=== PATIENT | male | born 1960 | race Caucasian/White ===

== ENCOUNTER 2020-11-01 12:46 | Emergency (ER) | payer OTHER ==
[~2020-11-01] VITALS: Ht 190.5 cm; Wt 108.9 kg
[2020-11-01] MEDS ORDERED: NS IV 1000 ML 1,000 ML IV SCH (14:00)
[2020-11-01] MEDS ORDERED: ONDANSETRON 4 MG/2 ML (SDV) Z0FRAN IVP ONE (14:00)
--- NOTE | 2020-11-01 14:41 | Diagnostic Imaging Report ---
INDICATION: Kidney pain and vomiting. TECHNIQUE: Abdominal film obtained at 02:35 p.m. FINDINGS: The abdominal bowel gas pattern is unremarkable. There is prominent stool in the colon. The intrarenal calculi noted on recent CT study are poorly visualized on this study. There are multiple calcifications overlying the left side of the pelvis, some of which are phleboliths although one may be the patient's known UVJ stone. There are surgical sutures in the right side of the pelvis. IMPRESSION: Unremarkable bowel gas pattern. There are pelvic calcifications present, which are mostly phleboliths, although one may be the patient's known left UVJ stone. The intrarenal calculi visualized on the CT study are not well depicted on this study. Dictated by: Dictated on workstation # [id number]
--- NOTE | 2020-11-01 14:45 | Diagnostic Imaging Report ---
PROCEDURE: CT urinary tract, rule out kidney stone. TECHNIQUE: Multiple contiguous axial images were obtained through the abdomen and pelvis without the use of intravenous contrast. Auto Exposure Controls were utilized during the CT exam to meet ALARA standards for radiation dose reduction. INDICATION: Left flank pain. FINDINGS: A 2.5 mm calculus at the distal left ureter near the UVJ results in mild to moderate upstream left-sided hydroureteronephrosis with significant left perinephric and periureteric stranding. No drainable fluid collection. There are additional nonobstructing bilateral intrarenal calculi, the largest additional stone within a right lower pole calyx measuring 5.1 mm. No right-sided ureteral calculus. The liver, gallbladder, bile ducts, spleen, adrenals, and pancreas unremarkable. The aorta is nonaneurysmal. There is a normal appendix. There is no bowel obstruction. The prostate and seminal vesicles unremarkable. There is right lower quadrant abdominal wall surgery. IMPRESSION: Bilateral nephrolithiasis with an obstructing 2.5 mm distal left ureteral stone near the ureterovesical junction resulting in mild to moderate upstream hydroureteronephrosis. Dictated by: Dictated on workstation # [id number]
[2020-11-01] MEDS ORDERED: KETOROLAC 30 MG/ML VIAL IVP STA (14:52)
[2020-11-01 14:55] LABS: BASOPHILS % (AUTO) 0 % (0-10); EOSINOPHILS % (AUTO) 0 % (0-10); HEMATOCRIT 50 % (40-54); LYMPHOCYTES # (AUTO) 1.5 10^3/uL (1.0-4.0); LYMPHOCYTES % (AUTO) 10 % (12-44); MEAN CORPUSCULAR HEMOGLOBIN 31 pg (25-34); MEAN CORPUSCULAR HGB CONC 34 g/dL (32-36); MEAN CORPUSCULAR VOLUME 90 fL (80-99); MEAN PLATELET VOLUME 9.6 fL (9.0-12.2); MONOCYTES # (AUTO) 1.3 10^3/uL (0.0-1.0); MONOCYTES % (AUTO) 8 % (0-12); NEUTROPHILS # (AUTO) 12.6 10^3/uL (1.8-7.8); NEUTROPHILS % (AUTO) 81 % (42-75); PLATELET COUNT 221 10^3/uL (130-400); WHITE BLOOD COUNT 15.5 10^3/uL (4.3-11.0)
[2020-11-01] MEDS ORDERED: HYDROcodone/APAP 5 MG/325 MG (LORTAB) TAB PO ONE (15:00)
[2020-11-01 15:02] LABS: BILIRUBIN,URINE NEGATIVE (NEGATIVE); CLARITY,URINE CLEAR; COLOR,URINE YELLOW; GLUCOSE, URINE (UA) NEGATIVE (NEGATIVE); KETONES,URINE 1+ (NEGATIVE); LEUKOCYTE ESTERASE ,URINE NEGATIVE (NEGATIVE); NITRITE,URINE NEGATIVE (NEGATIVE); PROTEIN,URINE NEGATIVE (NEGATIVE)
[2020-11-01 15:04] LABS: ALBUMIN 4.6 GM/DL (3.2-4.5); CHLORIDE 98 MMOL/L (98-107); SODIUM 138 MMOL/L (135-145)
[2020-11-01 15:05] LABS: CALCIUM 10.1 MG/DL (8.5-10.1)
[2020-11-01 15:06] LABS: GLUCOSE 149 MG/DL (70-105)
[2020-11-01 15:07] LABS: TOTAL PROTEIN 8.4 GM/DL (6.4-8.2)
[2020-11-01 15:08] LABS: CARBON DIOXIDE 25 MMOL/L (21-32)
[2020-11-01 15:10] LABS: ALKALINE PHOSPHATASE 52 U/L (40-136); CREATININE SERUM 1.83 MG/DL (0.60-1.30); GFR ESTIMATED 38
[2020-11-01 15:11] LABS: BUN/CREATININE RATIO 11
[2020-11-01 15:13] LABS: ALANINE AMINOTRANSFERASE 38 U/L (0-55)
--- NOTE | 2020-11-01 15:15 | ED GU-Female ---
General Chief Complaint: - Urinary Stated Complaint: KIDNEY PAIN, VOMITING Nursing Triage Note: PT ARRIVED BY PRIVATE VEHICLE WITH CHIEF COMPLAINT OF POSSIBLE KIDNEY STONE. PT STATED ONSET WAS SUNDAY. HE TOOK HYDROCODONE THAT HE HAD PREVIOUSLY GOT SEVERAL YEARS AGO BUT DID NOT WORK. HE DECIDED TO TAKE IBUPROFEN YESTERDAY AT NOON AND IT HELPED A LITTLE. HE HAS A HISTORY OF KIDNEY STONES. HE STARTED TO GET HICCUPS WHICH HAS CAUSED HIM DIFFICULTY SWALLOWING. CAN BARELY EAT EGGS. PT TAKES CRESTOR. PT HAS HISTORY OF 2 HERNIA REPAIRS AND C6 BONE REPLACEMENT. PT DENIES SMOKING, ALCOHOL OR DRUG USE. UA WAS OBTAINED AND VITALS WERE DONE. PT IS ALLERGIC TO ADHESIVE (BANDAIDS). Source: patient Exam Limitations: no limitations History of Present Illness Date Seen by Provider: Nov 01, 2020 Time Seen by Provider: 14:55 Initial Comments Here with report of left-sided abdominal pain and flank pain and believes that he may have a kidney stone. Reports hiccups and nausea. He did take ibuprofen 4 hours ago 4 mg tablet and states that is actually helping a bit. Denies v omiting but does have nausea. Denies diarrhea. Denies blood in his urine or stool. No fever chills or other illness. Follows with [facility]. Timing/Duration: getting worse, other (2 to 3 days) Severity/Quality: moderate, aching, cramping Location: left flank Radiation: suprapubic Prior Genitourinary Problems: similar symptoms (Kidney stones) Associated Symptoms: abdominal pain; No dysuria, No fever/chills; lower back pain; No nausea/vomiting, No urinary frequency Allergies and Home Medications Allergies Coded Allergies: adhesive tape (Verified Allergy, Unknown, 11/01/20) Patient Home Medication List Home Medication List Reviewed: Yes Review of Systems Review of Systems Constitutional: see HPI; No chills, No fever EENTM: no symptoms reported Respiratory: no symptoms reported Cardiovascular: no symptoms reported Gastrointestinal: see HPI Genitourinary: see HPI Musculoskeletal: see HPI Skin: no symptoms reported Past Vetpnoe-Nlxkhc-Cyiila Hx Patient Social History Tobacco Use?: No Smoking Status: Never a Smoker Substance use?: No Alcohol Use?: No Pt feels they are or have been: No Past Medical History Surgeries: Yes Orthopedic Respiratory: No Cardiac: Yes High Cholesterol Genitourinary: Yes Kidney Stones Physical Exam Vital Signs Vital Signs - First Documented 11/01/20 13:25 Temp 36.9 Pulse 129 Resp 18 B/P (MAP) 125/91 (102) Pulse Ox 96 O2 Delivery Room Air Capillary Refill : Less Than 3 Seconds Height, Weight, BMI Height: '" Weight: lbs. oz. kg; 30.00 BMI Method: General Appearance: WD/WN, no apparent distress Cardiovascular: regular rate, rhythm, no murmur Respiratory: lungs clear, normal breath sounds Gastrointestinal: non tender, soft Extremities: non-tender, normal inspection Neurologic/Psychiatric: alert, oriented x 3 Skin: normal color, warm/dry Progress/Results/Core Measures Suspected Sepsis SIRS Temperature: Pulse: 129 Respiratory Rate: 18 Laboratory Tests 11/01/20 14:46: White Blood Count 15.5H Blood Pressure 125 /91 Mean: 102 Laboratory Tests 11/01/20 14:46: Platelet Count 221, Total Bilirubin 1.0 Results/Orders Lab Results Laboratory Tests Test 11/01/20 13:12 11/01/20 14:46 Range/Units White Blood Count 15.5 H 4.3-11.0 10^3/uL Red Blood Count 5.52 4.30-5.52 10^6/uL Hemoglobin 17.0 13.3-17.7 g/dL Hematocrit 50 40-54 % Mean Corpuscular Volume 90 80-99 fL Mean Corpuscular Hemoglobin 31 25-34 pg Mean Corpuscular Hemoglobin Concent 34 32-36 g/dL Red Cell Distribution Width 12.8 10.0-14.5 % Platelet Count 221 130-400 10^3/uL Mean Platelet Volume 9.6 9.0-12.2 fL Immature Granulocyte % (Auto) 1 % Neutrophils (%) (Auto) 81 H 42-75 % Lymphocytes (%) (Auto) 10 L 12-44 % Monocytes (%) (Auto) 8 0-12 % Eosinophils (%) (Auto) 0 0-10 % Basophils (%) (Auto) 0 0-10 % Neutrophils # (Auto) 12.6 H 1.8-7.8 10^3/uL Lymphocytes # (Auto) 1.5 1.0-4.0 10^3/uL Monocytes # (Auto) 1.3 H 0.0-1.0 10^3/uL Eosinophils # (Auto) 0.0 0.0-0.3 10^3/uL Basophils # (Auto) 0.0 0.0-0.1 10^3/uL Immature Granulocyte # (Auto) 0.1 0.0-0.1 10^3/uL Sodium Level 138 135-145 MMOL/L Potassium Level 4.0 3.6-5.0 MMOL/L Chloride Level 98 98-107 MMOL/L Carbon Dioxide Level 25 21-32 MMOL/L Anion Gap 15 H 5-14 MMOL/L Glucose Level 149 H 70-105 MG/DL Calcium Level 10.1 8.5-10.1 MG/DL Corrected Calcium 8.5-10.1 MG/DL Total Bilirubin 1.0 0.1-1.0 MG/DL Total Protein 8.4 H 6.4-8.2 GM/DL Albumin 4.6 H 3.2-4.5 GM/DL My Orders Orders - ISHAAN ADAME MD Ketorolac Injection (Toradol Injection) (11/01/20 14:52) Ua Culture If Indicated (11/01/20 14:52) Hydrocodone/Apap 5/325 Tablet (Lortab 5 (11/01/20 15:00) Medications Given in ED Current Medications Medications Dose Ordered Sig/Madhavi Route Start Time Stop Time Status Last Admin Dose Admin Ondansetron HCl 8 mg ONCE ONCE IVP 11/01/20 14:00 11/01/20 14:01 DC 11/01/20 14:32 8 MG Vital Signs/I&O 11/01/20 13:25 Temp 36.9 Pulse 129 Resp 18 B/P (MAP) 125/91 (102) Pulse Ox 96 O2 Delivery Room Air Capillary Refill : Less Than 3 Seconds Blood Pressure Mean: 102 Progress Note : Progress Note Seen and evaluated. IV, labs, UA, CT abdomen pelvis and abdominal x-ray ordered. Monitor patient. CT does show stones. Normal saline 1 L bolus ordered. Toradol 30 mg IV and hydrocodone 5/325 1 tab p.o. Discharged home with return precautions. Patient verbalized understanding of instructions and agreement with plan. Diagnostic Imaging Diagonstic Imaging: CT Plain Films/CT/US/NM/MRI: abdomen, pelvis Comments [facility] [place], [place] NAME: ROSA GLASGOW [facility] REC#: [id number] PT STATUS: REG ER : 1960 PHYSICIAN: LILLIAN CASTANO APRN ADMIT DATE: 11/01/20/ER Draft Date of Exam:11/01/20 CT ABD/PELVIS WO(KIDNEY STONE) PROCEDURE: CT urinary tract, rule out kidney stone. TECHNIQUE: Multiple contiguous axial images were obtained through the abdomen and pelvis without the use of intravenous contrast. Auto Exposure Controls were utilized during the CT exam to meet ALARA standards for radiation dose reduction. INDICATION: Left flank pain. FINDINGS: A 2.5 mm calculus at the distal left ureter near the UVJ results in mild to moderate upstream left-sided hydroureteronephrosis with significant left perinephric and periureteric stranding. No drainable fluid collection. There are additional nonobstructing bilateral intrarenal calculi, the largest additional stone within a right lower pole calyx measuring 5.1 mm. No right-sided ureteral calculus. The liver, gallbladder, bile ducts, spleen, adrenals, and pancreas unremarkable. The aorta is nonaneurysmal. There is a normal appendix. There is no bowel obstruction. The prostate and seminal vesicles unremarkable. There is right lower quadrant abdominal wall surgery. IMPRESSION: Bilateral nephrolithiasis with an obstructing 2.5 mm distal left ureteral stone near the ureterovesical junction resulting in mild to moderate upstream hydroureteronephrosis. Dictated on workstation # [id number] Dict: 11/01/20 1434 Trans: 11/01/20 1445 [facility] [id number] Interpreted by: LISA INGRAM Electronically signed by: [place] [facility]: Xray Plain Films/CT/US/NM/MRI: abdomen Comments [facility], [place] NAME: ROSA GLASGOW [facility] REC#: [id number] PT STATUS: REG ER : 1960 PHYSICIAN: LILLIAN CASTANO APRN ADMIT DATE: 11/01/20/ER Draft Date of Exam:11/01/20 ABDOMEN/KUB 1VIEW INDICATION: Kidney pain and vomiting. TECHNIQUE: Abdominal film obtained at 02:35 p.m. FINDINGS: The abdominal bowel gas pattern is unremarkable. There is prominent stool in the colon. The intrarenal calculi noted on recent CT study are poorly visualized on this study. There are multiple calcifications overlying the left side of the pelvis, some of which are phleboliths although one may be the patient's known UVJ stone. There are surgical sutures in the right side of the pelvis. IMPRESSION: Unremarkable bowel gas pattern. There are pelvic calcifications present, which are mostly phleboliths, although one may be the patient's known left UVJ stone. The intrarenal calculi visualized on the CT study are not well depicted on this study. Dictated on workstation # [id number] Dict: 11/01/20 1435 Trans: 11/01/20 1440 [id number] Interpreted by: JUAN ROLAND MD Electronically signed by: Departure Impression Primary Impression: Left ureteral stone Disposition: 01 HOME, SELF-CARE Condition: Stable Departure-Patient Inst. Decision time for Depature: 15:18 Referrals: JULIAN ARMENTA MD Patient Instructions: Kidney Stones (DC), How to Strain Your Urine Add. Discharge Instructions: All discharge instructions reviewed with patient and/or family. Voiced u nderstanding. You may take ibuprofen 600 mg every 8 hours as needed for pain. Take other medications as prescribed. Follow-up with your doctor for recheck and further evaluation. You should follow-up with urologist listed or of your choosing for recheck and further evaluation as well. Call his office for appointment. Return for worse pain, fever, vomiting, weakness, breathing problems or other concerns as needed. Drink plenty of fluids. Scripts Tamsulosin HCl (Flomax) 0.4 Mg Cap 0.4 MG PO DAILY, #14 CAP Prov: ISHAAN ADAME MD 11/01/20 Hydrocodone Bit/Acetaminophen (HYDROcodone/APAP 5 MG/325 MG TAB) 1 Tab Tab 1 TAB PO Q4H for Pain, #12 TAB 0 Refills Prov: ISHAAN ADAME MD 11/01/20 Cephalexin (Cephalexin) 500 Mg Tablet 500 MG PO BID, #14 TAB 0 Refills Prov: ISHAAN ADAME MD 11/01/20 ISHAAN ADAME MD Nov 01, 2020 15:15
[2020-11-01 15:17] LABS: BACTERIA,URINE NEGATIVE /HPF
[2020-11-01] MEDS ORDERED: TMSL.4C PO (15:17)
[2020-11-01] MEDS ORDERED: CEPH500T PO (15:17)
[2020-11-01] MEDS ORDERED: ACHD5005 PO (15:17)
[2020-11-01 15:22] LABS: LYMPHOCYTES % (MANUAL) 14 %; MONOCYTES % (MANUAL) 8 %; NEUTROPHILS % (MANUAL) 78 %; RBC MORPH NORMAL
[2020-11-01 16:08] VITALS: BP 140/94
== END 2020-11-01 16:08 | disposition home or self-care (01) ==
LOC: EDUNIT# 12:46 → ER 12:50
DX: N13.2 Hydronephrosis with renal and ureteral calculous obstruction (principal)
CPT/HCPCS: 36415; 74018; 74176; 80053; 81000; 85007; 85027; 96361; 96374; 96375

== ENCOUNTER → 2020-11-10 | Outpatient (CLI) | payer OTHER ==
[~2020-11-10] MED LIST: ACHD5005 PO; CEPH500T PO; TMSL.4C PO
--- NOTE | 2020-11-10 15:18 | Diagnostic Imaging Report ---
INDICATION: Nephrolithiasis. EXAMINATION: KUB at 3:08 PM. There is a 4 mm calcification projecting over the lower pole of the right kidney. There is a 1 mm calcification projecting over the upper pole of the left kidney. Bowel gas pattern is normal. IMPRESSION: Right nephrolithiasis and questionable left nephrolithiasis. Dictated by: Dictated on workstation # [id number]
== END ==
LOC: RAD 14:44
PROVIDERS: ATTEND Urology
DX: N20.2 Calculus of kidney with calculus of ureter (principal)
CPT/HCPCS: 74018

== ENCOUNTER 2020-11-15 07:30 | Outpatient (RCR) | payer OTHER ==
[2021-02-07] MEDS ORDERED: ROSU40TA PO (15:49)
[2021-02-08] MEDS ORDERED: NITR-65 PO (15:25)
[2021-02-08] MEDS ORDERED: TMSL.4C PO (15:25)
[2021-02-08] MEDS ORDERED: KETO10TA PO (15:25)
== END 2021-02-08 | disposition home or self-care (01) ==
LOC: LAB 07:30
PROVIDERS: ATTEND Urology
DX: N20.0 Calculus of kidney (principal)
CPT/HCPCS: 36415; 82140; 82340; 82507; 82570; 83735; 83945; 83986; 84105; 84133; 84300; 84392; 84560; 88300

== ENCOUNTER 2021-02-07 14:06 | Outpatient (CLI) | payer OTHER ==
[~2021-02-07] VITALS: Ht 193 cm; Wt 100.0 kg
[~2021-02-07 14:06] MED LIST changes: -KETO10TA PO; -NITR-65 PO; -ROSU40TA PO
[2021-02-07] MEDS ORDERED: ROSU40TA PO (15:49)
[2021-02-08] MEDS ORDERED: TMSL.4C PO (15:25)
[2021-02-08] MEDS ORDERED: NITR-65 PO (15:25)
[2021-02-08] MEDS ORDERED: KETO10TA PO (15:25)
== END 2021-02-07 16:19 | disposition home or self-care (01) ==
LOC: PREOP 14:06
PROVIDERS: ATTEND Urology
DX: Z01.818 Encounter for other preprocedural examination (principal)

== ENCOUNTER → 2021-02-07 | Outpatient (CLI) | payer OTHER ==
[~2021-02-07] MED LIST changes: +KETO10TA PO; +NITR-65 PO; +ROSU40TA PO
--- NOTE | 2021-02-07 13:12 | Diagnostic Imaging Report ---
INDICATION: History of right ureteral calculus. COMPARISON: 11/10/2020. FINDINGS: Two supine radiographic views of the abdomen were obtained. Again identified are small extraosseous calcifications projecting over the superior and inferior poles of the bilateral renal shadows. Pelvic phleboliths are also again identified. No unexpected radiopaque foreign bodies are seen. The small bowel loops are nondistended. There is no large collection of free intraperitoneal air. The osseous structures show no acute abnormalities. IMPRESSION: 1. Bilateral nephrolithiasis. 2. Nonobstructed small bowel gas pattern. Dictated by: Dictated on workstation # [id number]
== END ==
LOC: RAD 12:53
PROVIDERS: ATTEND Urology
DX: N20.2 Calculus of kidney with calculus of ureter (principal)
CPT/HCPCS: 74018

== ENCOUNTER 2021-02-08 09:28 | Day surgery (SDC) | payer OTHER ==
[2021-02-08] VITALS (9 sets, daily range): BP systolic 97–144; BP diastolic 62–92
[~2021-02-08] VITALS: Ht 193 cm; Wt 100.0 kg
[~2021-02-08 09:28] MED LIST changes: +ROSU40TA PO
[2021-02-08] MEDS ORDERED: cefTRIAXone 1,000 MG in WATER (STERILE) FOR INJECTION 10 ML IV ONE (09:45)
--- NOTE | 2021-02-08 09:49 | Diagnostic Imaging Report ---
INDICATION: Renal calculi. COMPARISON: 02/07/2021. FINDINGS: Bilateral nephrolithiasis is again noted. Calculus in a lower pole calyx of the right kidney and mid upper pole on the left. Overall appearance is unchanged. No evidence of calcifications along the path of the ureters. The bladder is not distended. IMPRESSION: Bilateral nephrolithiasis without significant change in appearance since the previous exam. Dictated by: Dictated on workstation # [id number]
--- NOTE | 2021-02-08 10:24 | Progress Note-Pre Operative ---
Pre-Operative Progress Note H&P Reviewed The H&P was reviewed, patient examined and no changes noted. Date Seen by Provider: Feb 08, 2021 Time Seen by Provider: 10:24 Date H&P Reviewed: Feb 08, 2021 Time H&P Reviewed: 10:24 Pre-Operative Diagnosis: RT RENAL STONE JULIAN ARMENTA MD Feb 08, 2021 10:24
[2021-02-08] MEDS: LACTATED RINGERS 1,000 ML IV PRN ×2 (10:38→13:53)
--- NOTE | 2021-02-08 11:25 | Progress Note-Post Operative ---
Post-Operative Progess Note Surgeon (s)/Circle Beveler (s) Surgeon JULIAN ARMENTA MD Circle Beveler: NONE Pre-Operative Diagnosis RT RENAL STONE Post-Operative Diagnosis SAME Procedure & Operative Findings Date of Procedure 02/08/21 Procedure Performed/Findings RT ESWL Anesthesia Type GENERAL Estimated Blood Loss Estimated blood loss (mL): NONE Specimens/Packing Specimens Removed NONE Packing: NONE JULIAN ARMENTA MD Feb 08, 2021 11:25
--- NOTE | 2021-02-08 11:26 | Discharge Inst-Urology ---
Discharge Inst-Urology Reconcile Patient Problems Problems Reviewed?: Yes Final Diagnosis RT RENAL STONE Patient Instructions/Follow Up Plan/Assessment/Instructions Please make appointment to been seen in office in 2 weeks. KUB prior to it KUB on way home Post ESWL instructions Stay off ASA Increase oral fluids for 48 hours and then as needed. Diet and Activity as tolerated. If questions or concerns contact your physician Or seek help at emergency department. JULIAN ARMENTA MD Feb 08, 2021 11:26
[2021-02-08] MEDS ORDERED: MIDAZOLAM 2 MG/2 ML (VERSED) VIAL ONE (12:44)
[2021-02-08] MEDS ORDERED: fentaNYL INJ 100 MCG/2 ML AMP ONE (12:44)
[2021-02-08] MEDS ORDERED: proPOfol 200 MG/20 ML (DIPRIVAN) VIAL IV ONE ×2 (13:49→13:50)
[2021-02-08] MEDS ORDERED: KETOROLAC 30 MG/ML VIAL ONE (13:50)
[2021-02-08] MEDS ORDERED: LIDOCAINE PF 2% 5 ML (XYLOCAINE) VIAL ONE (13:50)
[2021-02-08] MEDS ORDERED: GLYCOPYRROLATE 0.2 MG/ML (ROBINUL) 2 ML VIAL ONE (13:50)
[2021-02-08] MEDS ORDERED: ONDANSETRON 4 MG/2 ML (SDV) Z0FRAN ONE (13:50)
--- NOTE | 2021-02-08 14:07 | Anesthesia-General Post-Op ---
General Patient Condition Mental Status/LOC: Same as Preop Cardiovascular: Satisfactory Nausea/Vomiting: Absent Respiratory: Satisfactory Pain: Controlled Complications: Absent Post Op Complications Complications None Follow Up Care/Instructions Patient Instructions None needed. Anesthesia/Patient Condition Patient Condition Patient is doing well, no complaints, stable vital signs, no apparent adverse anesthesia problems. No complications reported per nursing. ANGELA MENDOSA CRNA Feb 08, 2021 14:07
[2021-02-08] MEDS ORDERED: TMSL.4C PO (15:25)
[2021-02-08] MEDS ORDERED: KETO10TA PO (15:25)
[2021-02-08] MEDS ORDERED: NITR-65 PO (15:25)
--- NOTE | 2021-02-08 16:04 | Diagnostic Imaging Report ---
INDICATION: Status post lithotripsy. TIME OF EXAM: 03:54 p.m. COMPARISON: Correlation is made with prior study earlier same day. FINDINGS: Calcific density in the midportion of the right kidney appears to be stable. The tiny calculus overlying the upper pole of the left kidney on earlier study is not well visualized due to obscuration from overlying bowel gas. Calcific densities in the pelvis bilaterally appear unchanged. IMPRESSION: Stable urinary tract calculi when compared with study earlier same day. Dictated by: Dictated on workstation # [id number]
--- NOTE | 2021-02-08 20:14 | OPERATIVE REPORT ---
DATE OF SERVICE: 02/08/2021 PREOPERATIVE DIAGNOSIS: Right renal stone. POSTOPERATIVE DIAGNOSIS: Right renal stone. OPERATION PERFORMED: Right ESWL. SURGEON: Rashi Armenta MD. ANESTHESIA: General. COMPLICATIONS: None. DESCRIPTION OF PROCEDURE: With the patient supine on the ESWL table under satisfactory general anesthesia, the right renal stone was localized. Shocks were delivered at kV of 6, a total of 1500 shocks completely fragmented the stone that was not visualized anymore. The patient received 40 mg of Lasix and 30 mg of Toradol IV at the end of the procedure. He tolerated the procedure and anesthesia well and was sent to recovery room in a stable condition. Job ID: [id number] DocumentID: [id number] Dictated Date: 02/08/2021 13:51:53 Well Drill Operator Rotary Drill Date: 02/08/2021 20:14:17 Dictated By: RASHI ARMENTA MD
== END 2021-02-08 16:20 | disposition home or self-care (01) ==
LOC: SDC 09:28
PROVIDERS: ATTEND Urology
DX: N20.0 Calculus of kidney (principal); Z11.2 Encounter for screening for other bacterial diseases; N40.0 Benign prostatic hyperplasia without lower urinary tract symptoms; N52.9 Male erectile dysfunction, unspecified; Z91.048 Other nonmedicinal substance allergy status; E78.5 Hyperlipidemia, unspecified; Z79.82 Long term (current) use of aspirin; Z79.899 Other long term (current) drug therapy
CPT/HCPCS: 74018; 87081

== ENCOUNTER → 2021-02-22 | Outpatient (CLI) | payer OTHER ==
[~2021-02-22] MED LIST changes: +KETO10TA PO; +NITR-65 PO
--- NOTE | 2021-02-22 16:32 | Diagnostic Imaging Report ---
INDICATION: Stones post ESWL. COMPARISON: 02/09/2020. FINDINGS: A right renal calculus was previously projecting over the mid to lower third of the right kidney. That stone at the level previously seen is no longer found. A calcification in the right pelvis just lateral to the sacrum at the S3 level is unchanged. This may be a stable ureteral stone or vascular calcification. Just below that level, a new calcific density projects along the lateral margin of the lower portion of the sacrum. This may be the previous intrarenal stone migrating distally, correlate clinically. IMPRESSION: The previous right intrarenal stone is no longer found at that level but may be seen migrating into the distal right ureter. Other pelvic calcifications are identical to prior. Dictated by: Dictated on workstation # [id number]
== END ==
LOC: RAD 13:59
PROVIDERS: ATTEND Urology
DX: N20.0 Calculus of kidney (principal); M61.48 Other calcification of muscle, other site
CPT/HCPCS: 74018